=== PATIENT | female | born 1985 | race African-American/Black ===

== ENCOUNTER 2017-06-22 05:23 | Emergency (ER) | payer OTHER ==
[~2017-06-22] VITALS: Ht 149.9 cm; Wt 48.0 kg
[2017-06-22 06:50] VITALS: BP 126/75
== END 2017-06-22 07:10 | disposition home or self-care (01) ==
LOC: ER 05:23
DX: O26.891 Other specified pregnancy related conditions, first trimester (principal); R20.2 Paresthesia of skin; M79.601 Pain in right arm; Z3A.01 Less than 8 weeks gestation of pregnancy; Z85.840 Personal history of malignant neoplasm of eye; Z87.442 Personal history of urinary calculi
CPT/HCPCS: 81025; 99282